=== PATIENT | female | born 1970 | race Hispanic/Latino ===

== ENCOUNTER → 2017-08-21 | Outpatient (CLI) | payer OTHER ==
[~2017-08-21] MED LIST: IOPAMIDOL 370 MG/ML 200 ML INFUS..BTL INJ ONE; SODIUM CHLORIDE 0.9% 250ML 250 ML ONE; SODIUM CHLORIDE 0.9% 50ML 50 ML ONE
--- NOTE | 2017-08-21 18:20 | Diagnostic Imaging Report ---
PROCEDURE: CT ABDOMEN \T\ PELVIS W/WO CONTRAST TECHNIQUE: The abdomen and pelvis were scanned utilizing a multidetector helical scanner from the diaphragm to the lesser trochanter before and after the IV administration of 150 cc of Isovue 370 and the oral administration of water. Coronal and sagittal multiplanar reformations were obtained. Total DLP: 463.42 mGy-cm COMPARISON: None. INDICATIONS: GROSS HEMATURIA FINDINGS: LOWER THORAX: Normal. HEPATOBILIARY: No focal hepatic lesions. No biliary ductal dilatation. SPLEEN: No splenomegaly. PANCREAS: No focal masses or ductal dilatation. ADRENALS: No adrenal nodules. KIDNEYS/URETERS: No hydronephrosis, stones, or solid mass lesions. Renal calyces, ureters, bladder are normal. 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 PELVIC ORGANS/BLADDER: Uterus is retroverted. PERITONEUM / RETROPERITONEUM: No free air or fluid. LYMPH NODES: No lymphadenopathy. VESSELS: Unremarkable. Circumaortic left renal vein. GI TRACT: No distention or wall thickening. Appendix is normal. BONES AND SOFT TISSUES: Unremarkable. IMPRESSION: 1. No source of hematuria identified. 2 Unremarkable abdomen and pelvis. Dictated by: Mino Kim M.D. on 08/21/2017 at 18:20 Electronically approved by: Mino Kim M.D. on 08/21/2017 at 18:20
== END ==
LOC: EDBD → CT 15:57
PROVIDERS: ATTEND Urology
DX: R31.0 Gross hematuria (principal)
CPT/HCPCS: 74178; 81025; J7050; Q9967